=== PATIENT | male | born 2000 | race Caucasian/White ===

== ENCOUNTER 2022-06-21 10:15 | Outpatient (CLI) | payer BC, SELFPAY ==
--- NOTE | 2022-06-28 16:21 | WPDHOLTEREM ---
Holter/Event Monitor Holter/Event Monitor Date of procedure: 06/21/22 Holter/Event Procedure: 48 Hr Holter Monitor Indications: Syncope Conclusion: 1. 48 hour holter monitor on 06/21/22. 2. Underlying rhythm is sinus rhythm. HR range 46-138 bpm; average HR 89 bpm. 3. There are 5 premature supraventricular complexes. No supraventricular tachycardia. 4. There are 2 premature ventricular complexes. No ventricular tachycardia. 5. No sinoatrial or atrioventricular blocks. No significant pauses greater than 2 seconds. 6. Patient reports symptoms of dizziness, lightheadedness, chest pain which demonstrate sinus rhythm, HR range 87-121 bpm.
== END 2022-06-21 10:16 | disposition home or self-care (01) ==
LOC: ANHCARD 10:21
PROVIDERS: PCP Physician Assistant; Visit Provider Physician Assistant
DX: R55 Syncope and collapse (principal)
CPT/HCPCS: 93225; 93226

== ENCOUNTER 2022-09-06 18:51 | Emergency (ER) | payer BC, MEDICAID, SELFPAY ==
--- NOTE | ~2022-09-06 | XR_ITS ---
EXAMINATION: XR chest 2V DATE: 09/06/2022 19:23 INDICATION: Left-sided chest pain TECHNIQUE: PA and lateral views of the chest are obtained. COMPARISON: None available FINDINGS: There is minimal airspace opacity of the right lower lobe. No pleural effusion or pneumotho rax. The cardiomediastinal silhouette is normal. The visualized bones and soft tissues are unremarkab le. IMPRESSION: 1. Minimal airspace opacity of the right lower lobe, consistent with atelectasis versus pneumonia. Reviewed, dictated and finalized at location F. [employer]UT[employer] ENGINEER IMPRESSION: 1. Minimal airspace opacity of the right lower lobe, consistent with atelectasi s versus pneumonia.
[2022-09-06 18:47] VITALS: BP 134/71; PULSE 96; RESP 16; TEMP 37; O2SAT 98
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
--- NOTE | 2022-09-06 19:12 | ECG_ITS ---
Measurements Intervals [place] Rate: 96 P: 64 TN: 147 QRS: 81 QRSD: 94 T: 71 QT: 335 QTc: 425 Interpretive Statements SINUS RHYTHM NORMAL ECG NO PREVIOUS ECG AVAILABLE FOR COMPARISON Electronically Signed On 09-06-2022 20:49:37 [employer] DISPATCHER by Joey Wheeler D.O.
--- NOTE | 2022-09-06 19:28 | PC.NURSE ---
Pt has officer at bedside. pt is under police custody at this time. Pt is currently high risk for suicide. Pt stated after he was told to change into green scrubs wait can't i just change my mind about the suicidal stuff . Pt is still labeled high risk at this time. All items removed from room and personal belongings locked away in proper area.
[2022-09-06 19:49] LABS: Appearance Urine Clear (Clear); Bilirubin Urine Negative (Negative); Blood Urine Negative (Negative); Color Urine Yellow (Yellow); Glucose Urine UA Negative (Negative); Ketones Urine Trace mg/dL (Negative); Leukocyte Esterase Ur Negative LEU/UL (Negative); Nitrate Urine Negative (Negative); Protein Urine 1+ mg/dL (Negative); Specific Grav Ur >= 1.030 (1.001-1.035); Urobilinogen Urine 0.2 mg/dL (<2.0); pH Urine 5.5 (5.0-9.0)
[2022-09-06 19:51] LABS: Ethanol < 10 mg/dL (<10)
[2022-09-06 19:52] LABS: Alanine Aminotransferase 14 U/L (6-50); Albumin Level 4.4 g/dL (3.5-5.1); Alkaline Phosphatase 67 U/L (38-126); Anion Gap 14 mmol/L (8-16); Aspartate Amino Transferase 19 U/L (17-59); Bilirubin,Total 0.3 mg/dL (0.2-1.3); Blood Urea Nitrogen 14 mg/dL (9-20); Calcium 9.1 mg/dL (8.4-10.2); Carbon Dioxide 26 mmol/L (22-30); Chloride 103 mmol/L (98-107); Estimated CRCL calculation 130 ml/min; Estimated Glomerular Filt Rate > 60; Glucose 87 mg/dL (65-110); Potassium 3.9 mmol/L (3.4-5.0); Sodium 143 mmol/L (137-145)
[2022-09-06 19:53] LABS: Bacteria Urine Trace /hpf; Mucus Urine Rare /lpf; RBC Urine 0-2 /hpf (0-2); Squamous Epithelial Cell Urine Rare /hpf (Few); WBC Urine 0-3 /hpf
[2022-09-06 19:56] LABS: Add Urine Microscopic? YES
[2022-09-06 19:57] LABS: Basophils Absolute Auto 0.1 K/mm3 (0.0-0.1); Basophils Percent Auto 0.8 % (0.2-1.2); Eosinophils Absolute Auto 0.2 K/mm3 (0-0.3); Eosinophils Percent Auto 1.6 % (0-4.4); Hematocrit 41.9 % (42.0-52.0); Hemoglobin 14.3 g/dL (14.0-18.0); Immature Granulocyte Absolute 0.05 K/mm3 (0.00-0.031); Immature Granulocyte Percent A 0.4 % (0-0.5); Lymphocytes Absolute Auto 1.04 K/mm3 (0.9-3.2); Lymphocytes Percent Auto 7.8 % (18.3-44.2); Mean Corpuscular HGB Conc 34.1 g/dl (32-36); Mean Corpuscular Hemoglobin 31.5 pg (26-34); Mean Corpuscular Volume 92.3 fl (80-100); Mean Platelet Volume 10.6 fl (7.4-10.4); Monocytes Absolute Auto 0.8 K/mm3 (0.1-0.6); Monocytes Percent Auto 5.6 % (2.6-8.5); Neutrophils Absolute Auto 11.2 K/mm3 (1.3-6.7); Neutrophils Percent Auto 83.8 % (45.5-73.1); Platelet Count Result 320 k/mm3 (150-375); Red Blood Count 4.54 M/mm3 (4.6-6.20); Red Cell Distribution Width 12.5 % (11.5-14.5); White Blood Count 13.3 K/mm3 (4.5-10.0)
[2022-09-06 20:06] LABS: Amphetamine Screen Urine Negative (Negative); Barbiturate Screen Urine Negative (Negative); Benzodiazepines Screen Urine Negative (Negative); Cannabinoid Screen Urine Negative (Negative); Cocaine Screen Urine Negative (Negative); Methadone Screen Urine Negative (Negative); Opiate Screen Urine Negative (Negative); Phencyclidine Screen Urine Negative (Negative)
--- NOTE | 2022-09-06 20:37 | PC.NURSE ---
All questions answered by this RN. Pt rates cp 03/29. Fit for Confinement form provided to officer present. Pt medically clear for alf.
[2022-09-06 20:47] VITALS: BP 132/70; PULSE 96; RESP 16; TEMP 37; O2SAT 98
== END 2022-09-06 20:49 ==
PROVIDERS: Emergency Provider Nurse Practitioner Family; PCP Physician Assistant
DX: R07.1 Chest pain on breathing (principal); R45.851 Suicidal ideations
CPT/HCPCS: 36415; 71046; 80053; 80307; 81001; 85025; 93005; 99283